=== PATIENT | male | born 1955 | race Caucasian/White ===

== ENCOUNTER 2017-02-08 13:10 | Day surgery (SDC) | payer OTHER ==
[~2017-02-08] VITALS: Ht 167.6 cm; Wt 90.7 kg
[~2017-02-08 13:10] MED LIST: AMITIZA24 MCG PO; HYDROCHLOROTHIA25 M1 PO; LISINOPRIL40 MG PO; MELOXICAM15 MG PO; NISOLDIPINE17 MG PO; OXYCODONE HCL20 MG PO; OXYCODONE HCL30 MG PO; OXYCODONE HYDRO30 MG PO; OXYCODONE SR 2020 MG PO; OXYCONTIN 10MG10 MG PO; OXYCONTIN PO; OXYCONTIN60 M1 PO; POTASSIUM CHLO10 ME3 PO; ROXICODONE30 MG PO
[2017-02-08 13:22] VITALS: BP 169/84
[2017-02-08 13:39] VITALS: BP 148/85
[2017-02-08 13:41] VITALS: BP 150/88
[2017-02-08 14:04] VITALS: BP 155/83
--- NOTE | 2017-02-08 14:05 | Procedure Note ---
Procedure detail Date of procedure: 02/08/17 Anesthesiologist: Rio Walsh Complications: None Pre-procedure diagnosis: Degenerative disease lumbar spine multiple levels. Cervical degenerative disc disease. Cervical postlaminectomy syndrome. Post-procedure diagnosis: Same. Indications for procedure: Very pleasant 61-year-old white male returns our procedure clinic today for intrathecal pain pump refill. Patient currently has hydromorphone 1 mg/mL at 0.3 mg per day. PTM dose at 0.02 mg 4 times daily. Patient complain of increase in pain in the cervical spine area as well as lumbar spine. We will increase his pump rate and PTM today following refill. Objective: Patient is awake alert oriented 3. In no acute distress. Flexion extension lumbar and cervical spine somewhat guarded secondary to pain. Deep tendon reflexes upper lower extremities normal. Motor strength upper and lower extremities normal. There is no gross sensory deficit. Gait is normal. Procedure detail: Details of the procedure were expected to the patient. The patient was taken to procedure room and placed in the sitting position on the fluoroscopy table. Noninvasive monitors were placed including noninvasive blood pressure cuff as well as pulse oximeter. The area over the intrathecal pain pump was cleansed using chlorhexidine as a cleansing solution. The pump was accessed with ease using a 22-gauge needle from the refill kit. 9.7 mL of solution was withdrawn from the pump and scarred appropriately. The pump was then filled with 20 mL of hydromorphone 2 mg/mL. The pump was interrogated. Rate was increased to 0.35 mg a day. His PTM was increased to 0.03 mg 6 times daily. Patient tolerated procedure without difficulty. There were no complications. Plan and disposition: Patient was evaluated 10 minutes post procedure. He is doing very well. He'll return to see us as next fill date. at [id number]
== END 2017-02-08 14:04 | disposition home or self-care (01) ==
LOC: PM 13:10
DX: M50.30 Other cervical disc degeneration, unspecified cervical region (principal); M96.1 Postlaminectomy syndrome, not elsewhere classified

== ENCOUNTER 2017-03-29 12:49 | Day surgery (SDC) | payer OTHER ==
[~2017-03-29] VITALS: Ht 167.6 cm; Wt 92.5 kg
[2017-03-29 13:02] VITALS: BP 120/68
[2017-03-29 13:36] VITALS: BP 120/68
[2017-03-29 13:37] VITALS: BP 130/79
--- NOTE | 2017-03-29 13:53 | Procedure Note ---
Procedure detail Date of procedure: 03/29/17 Anesthesiologist: Rio Walsh Complications: None Pre-procedure diagnosis: Degenerative disc disease cervical lumbar spine. Cervical post laminotomy syndrome. Cervical radiculopathy symptoms. RIGHT sacroiliitis Post-procedure diagnosis: Same Indications for procedure: This patient is very pleasant 61-year-old white male comes our procedural clinic today for intrathecal pain pump refill. His pump currently contains hydromorphone 2 mg/mL. Today we will change his hydromorphone concentration to 3 mg/ml. Patient's current rate is 0.35 mg per day. He's doing very well his current dose. He's complaining of some RIGHT SI joint pain. Upon examination screen point tenderness over the RIGHT SI joint. We discussed RIGHT SI joint injection at his next convenience. Patient is doing very well with his intrathecal pain pump. Reports his pain overall pain is 2/10. Objective: Patient's awake alert oriented 3. In acute distress. Flexion extension lumbar spine somewhat guarded secondary to pain. Deep tendon reflexes upper lower extremities normal. Motor Anjali lower extremity is normal. There is no gross sensory deficit. Gait is normal. Procedure detail: Details of procedure is going to the patient. The patient stated that the procedure room placed in the sitting position. The area over the pump was cleansed using chlorhexidine as a cleansing solution. The pump was accessed with the ages of 22-gauge needle from the refill kit. 10 mL of solution was withdrawn and discarded properly. The pump was then filled with 20 mL of hydromorphone 3 mg/mL. The pump was interrogated. The rate was continued at 0.35 mg per day. Patient tolerated the procedure without difficulty. There are no complications. Plan and disposition: Patient was evaluated 10 minutes post procedure. He'll return to see us for RIGHT SI joint injection if he so chooses. He's doing very well. at [id number]
[2017-03-29 14:13] VITALS: BP 120/68
== END 2017-03-29 14:15 | disposition home or self-care (01) ==
LOC: PM 12:49
DX: M50.10 Cervical disc disorder with radiculopathy, unspecified cervical region (principal); M96.1 Postlaminectomy syndrome, not elsewhere classified; M46.1 Sacroiliitis, not elsewhere classified